=== PATIENT | female | born 1965 | race Two or more races ===

== ENCOUNTER 2023-05-27 00:09 | Emergency (ER) | payer OTHER ==
[~2023-05-27] VITALS: Ht 162.6 cm; Wt 65.8 kg
[~2023-05-27 00:09] MED LIST: TRAM1TAB98 PO
[2023-05-27] MEDS ORDERED: NAPROXEN500 MG PO (02:04)
== END 2023-05-27 02:16 | disposition home or self-care (01) ==
LOC: ER 00:10
DX: S61.412A Laceration without foreign body of left hand, initial encounter (principal); W25.XXXA Contact with sharp glass, initial encounter; Y93.G1 Activity, food preparation and clean up; Y92.89 Other specified places as the place of occurrence of the external cause; Y99.9 Unspecified external cause status